=== PATIENT | female | born 2000 | race Caucasian/White ===

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

== ENCOUNTER → 2024-04-08 | Outpatient (CLI) | payer OTHER ==
[2024-04-08 19:37] LABS: BASOPHILS ABSOLUTE AUTO 0.04 K/mm3 (0.00-0.23); BASOPHILS PERCENT AUTO 0 % (0-2); EOSINOPHILS PERCENT AUTO 1 % (0-6); Hematocrit 33.7 % (33.0-51.0); Hemoglobin 11.3 g/dL (11.5-16.0); IMMATURE GRAN ABSOLUTE AUTO 0.15 K/mm3 (0.00-0.10); IMMATURE GRAN PERCENT AUTO 1 % (0-1); LYMPHOCYTES PERCENT AUTO 14 % (21-46); MONOCYTES ABSOLUTE AUTO 0.74 K/mm3 (0.16-1.47); MONOCYTES PERCENT AUTO 6 % (4-13); Mean Corpuscular HGB 30.6 pg (26.0-34.0); Mean Corpuscular HGB Conc 33.5 g/dL (31.5-36.5); Mean Corpuscular Volume 91 fL (80-100); Mean Platelet Volume 9.7 fL (9.1-12.4); NEUTROPHILS ABSOLUTE AUTO 10.25 K/mm3 (1.96-9.15); NEUTROPHILS PERCENT AUTO 78 % (41-73); Platelet Count 258 K/mm3 (150-400); RDW Coefficient Variation 13.1 % (11.7-14.2); RDW Standard Deviation 43.3 fL (35.1-46.3); Red Blood Cell Count 3.69 M/mm3 (3.80-5.20); White Blood Cell Count 13.18 K/mm3 (4.00-11.30)
== END ==
LOC: LAB SHORT 18:30 → LAB 18:30
PROVIDERS: Advanced Practice Midwife
DX: Z34.93 Encounter for supervision of normal pregnancy, unspecified, third trimester (principal)
CPT/HCPCS: 82950; 85025; 86850; 86900; 86901

== ENCOUNTER 2024-07-07 20:52 | Inpatient (IN) | payer BC, OTHER ==
[~2024-07-07] VITALS: Ht 162.6 cm; Wt 99.5 kg
[~2024-07-07 20:52] MED LIST changes: +Misoprostol 200 MCG Tab PO ONE
[2024-07-07 21:04] VITALS: BP 123/75
[2024-07-07] MEDS ORDERED: Methylergonovine Maleate 0.2MG / ML 1ML Amp IM PRN (21:30)
[2024-07-07] MEDS ORDERED: Ondansetron HCl 2 MG / ML 2ML Vial IV PRN (21:30)
[2024-07-07] MEDS ORDERED: Misoprostol 200 MCG Tab PR PRN (21:30)
[2024-07-07] MEDS ORDERED: Carboprost Tromethamine 250 MCG/ML 1ML Amp IM PRN (21:30)
[2024-07-07] MEDS ORDERED: FentaNYL Citrate 50 MCG/ML 2 ML Injection IV PRN (21:30)
[2024-07-07] MEDS ORDERED: Lactated Ringer's 1,000 ML IV PRN ×3 (21:30→21:35)
[2024-07-07] MEDS ORDERED: Acetaminophen 500 MG Tab PO PRN (21:30)
[2024-07-07] MEDS ORDERED: Misoprostol 200 MCG Tab BC PRN (21:30)
[2024-07-07] MEDS ORDERED: Oxytocin 10 Unit / ML Vial IM PRN (21:30)
[2024-07-07] MEDS ORDERED: Tranexamic Acid 100 ML IV SCH (21:30)
[2024-07-07] MEDS ORDERED: ePHEDrine Sulfate 50 MG/ML 1ML Injection XX PRN (21:30)
[2024-07-07] MEDS ORDERED: FentaNYL 2mcg/ml-Bup 0.1% Epd 250 ML EPI PRN (21:30)
[2024-07-07] MEDS ORDERED: OXYTOCIN/RINGER'S LACTATE 500 ML IV PRN (21:30)
[2024-07-07] MEDS ORDERED: Calcium Carbonate 500 MG Tab Chew PO PRN (21:35)
[2024-07-07 22:22] LABS: BASOPHILS ABSOLUTE AUTO 0.05 K/mm3 (0.00-0.23); BASOPHILS PERCENT AUTO 0 % (0-2); EOSINOPHILS ABSOLUTE AUTO 0.08 K/mm3 (0.00-0.68); EOSINOPHILS PERCENT AUTO 1 % (0-6); Hematocrit 33.5 % (33.0-51.0); Hemoglobin 11.2 g/dL (11.5-16.0); IMMATURE GRAN ABSOLUTE AUTO 0.29 K/mm3 (0.00-0.10); IMMATURE GRAN PERCENT AUTO 2 % (0-1); LYMPHOCYTES ABSOLUTE AUTO 2.61 K/mm3 (0.84-5.20); LYMPHOCYTES PERCENT AUTO 18 % (21-46); MONOCYTES ABSOLUTE AUTO 1.16 K/mm3 (0.16-1.47); MONOCYTES PERCENT AUTO 8 % (4-13); Mean Corpuscular HGB Conc 33.4 g/dL (31.5-36.5); Mean Corpuscular Volume 87 fL (80-100); Mean Platelet Volume 10.3 fL (9.1-12.4); NEUTROPHILS ABSOLUTE AUTO 10.35 K/mm3 (1.96-9.15); NEUTROPHILS PERCENT AUTO 71 % (41-73); Platelet Count 264 K/mm3 (150-400); RDW Coefficient Variation 14.4 % (11.7-14.2); RDW Standard Deviation 44.5 fL (35.1-46.3); Red Blood Cell Count 3.86 M/mm3 (3.80-5.20); White Blood Cell Count 14.54 K/mm3 (4.00-11.30)
[2024-07-07 22:23] VITALS: BP 132/86
[2024-07-08] VITALS (61 sets, daily range): BP systolic 106–167; BP diastolic 56–100
[2024-07-08] MEDS ORDERED: Ibuprofen 400 MG Tab PO PRN (18:50)
[2024-07-08] MEDS ORDERED: Ketorolac Tromethamine 30mg Vial IV PRN (18:55)
[2024-07-08] MEDS ORDERED: Methylergonovine Maleate 0.2MG / ML 1ML Amp IM PRN (19:50)
[2024-07-08] MEDS ORDERED: OXYTOCIN/RINGER'S LACTATE 500 ML IV SCH (19:50)
[2024-07-08] MEDS ORDERED: Misoprostol 200 MCG Tab PO PRN (19:55)
[2024-07-08] MEDS ORDERED: Benzocaine Topical Anesthetic Spray 60GM TOP SCH (20:00)
[2024-07-08] MEDS ORDERED: Witch Hazel/Glycerin PADS TOP PRN (20:05)
[2024-07-08] MEDS ORDERED: Diphth,Pertuss(Acell),Tet Vac 0.5 ML VIAL IM ONE (20:30)
[2024-07-08] MEDS ORDERED: Acetaminophen 325 MG TABLET PO PRN (20:30)
[2024-07-08] MEDS ORDERED: OxyCODONE 5 mg/Acetamin 325 mg TABLET PO PRN (20:35)
[2024-07-08] MEDS ORDERED: Rho(D) Immune Globulin 300 MCG / SYR IM PRN (20:35)
[2024-07-08] MEDS ORDERED: Lactated Ringer's 1,000 ML IV SCH (20:35)
[2024-07-08] MEDS ORDERED: Lanolin Cream TOP PRN (20:35)
[2024-07-08] MEDS ORDERED: Docusate Sodium 100 MG Cap PO PRN (20:35)
[2024-07-09] MEDS ORDERED: Rho(D) Immune Globulin 300 MCG / SYR IV ONE ×2 (02:05→04:30)
[2024-07-09 03:38] VITALS: BP 118/68
[2024-07-09 06:25] LABS: Hematocrit 29.1 % (33.0-51.0); Hemoglobin 9.6 g/dL (11.5-16.0); Mean Corpuscular HGB 28.9 pg (26.0-34.0); Mean Corpuscular Volume 88 fL (80-100); Mean Platelet Volume 10.3 fL (9.1-12.4); Platelet Count 228 K/mm3 (150-400); RDW Coefficient Variation 14.4 % (11.7-14.2); RDW Standard Deviation 45.6 fL (35.1-46.3); Red Blood Cell Count 3.32 M/mm3 (3.80-5.20); White Blood Cell Count 13.35 K/mm3 (4.00-11.30)
[2024-07-09 07:46] VITALS: BP 119/63
[2024-07-09] MEDS ORDERED: Prenatal Vit/FE Fumarate/FA 1 Tab PO SCH (09:00)
[2024-07-09 11:28] VITALS: BP 127/79
[2024-07-09] MEDS ORDERED: Sod Ferric Gluc Complx/Sucrose 125 MG in NS 100 ML IV SCH (13:30)
[2024-07-09 15:30] VITALS: BP 118/77
[2024-07-12 10:52] LABS: HEPATITIS C AB CIA INTERP Negative (Negative); HEPATITIS C ANTIBODY CIA INDEX 0.05 IV
== END 2024-07-09 19:15 | disposition home or self-care (01) | DRG 807 ==
LOC: OBS 20:52 → BC 20:53 → OBS 21:22 → BC 21:24
PROVIDERS: ADMIT Advanced Practice Midwife
PROC: 0HQ9XZZ Repair Perineum Skin, External Approach (ICD-10-PCS; principal; 2024-07-08)
PROC: 10E0XZZ Delivery of Products of Conception, External Approach (ICD-10-PCS; principal; 2024-07-08)
PROC: 10907ZC Drainage of Amniotic Fluid, Therapeutic from Products of Conception, Via Natural or Artificial Opening (ICD-10-PCS; principal; 2024-07-08)
DX: O48.0 Post-term pregnancy (principal); Z37.0 Single live birth; Z3A.41 41 weeks gestation of pregnancy; O90.81 Anemia of the puerperium; O70.0 First degree perineal laceration during delivery
CPT/HCPCS: 36415; 51702; 59025; 85025; 85027; 85460; 86803; 86850; 86900; 86901; 99214; A9270; J1885; J2405; J2791; J2916; J3010; J7120